=== PATIENT | female | born 1955 | race Caucasian/White ===

== ENCOUNTER 2020-12-09 09:54 | Day surgery (SDC) | payer OTHER ==
[2020-12-07 15:30] VITALS: BMI 24.5
[2020-12-09] MEDS ORDERED: PROPOFOL 20 ML ONE ×2 (10:48)
[2020-12-09 11:48] VITALS: TEMP 97.5
[2020-12-09 11:59] VITALS: BP 109/70; PULSE 72
== END 2020-12-09 12:05 | disposition home or self-care (01) ==
LOC: FASU-ENDO 09:54
PROVIDERS: ATTEND Internal Medicine Gastroenterology
PROC: 0DJD8ZZ Inspection of Lower Intestinal Tract, Via Natural or Artificial Opening Endoscopic (ICD-10-PCS; principal; 2020-12-09 11:22)
DX: Z86.010 Personal history of colon polyps (principal); K64.1 Second degree hemorrhoids